=== PATIENT | male | born 1965 | race Caucasian/White ===

== ENCOUNTER 2024-04-01 22:48 | Emergency (ER) | payer OTHER ==
[2024-04-01 23:03] VITALS: TEMP 98.2; BMI 16.5
[2024-04-02 01:09] LABS: BASO % 0.7 % (0-2.0); EOS % 1.1 % (0-4.5); HEMATOCRIT 34.9 % (35.4-49); HEMOGLOBIN 12.2 GM/dL (11.7-16.9); LYMPH % 23.5 % (8-40); MCH 32.3 pg (25.7-33.7); MCHC 34.8 g/dl (32.0-35.9); MEAN CELL VOLUME 92.8 fl (80-96); MEAN PLT VOLUME 8.6 fl (7.5-11.1); MONO % 6.6 % (3.8-10.2); NEUT % 68.1 % (42.8-82.8); PLATELET COUNT 201 10^3/uL (134-434); RBC 3.76 M/mm3 (4.00-5.60); RDW 14.5 % (11.9-15.9); WHITE BLOOD COUNT 6.6 K/mm3 (4.0-10.0)
[2024-04-02 01:27] LABS: ALBUMIN 3.7 g/dl (3.4-5.0); CALCIUM 8.9 mg/dL (8.5-10.1); MAGNESIUM 2.1 mg/dL (1.8-2.4)
[2024-04-02 01:28] LABS: BLOOD UREA NITROGEN 21.3 mg/dL (7-18)
[2024-04-02 01:30] LABS: CREATININE 0.6 mg/dL (0.55-1.3)
[2024-04-02 01:32] LABS: BILIRUBIN,TOTAL 0.5 mg/dL (0.2-1); TOT PROT 7.4 g/dl (6.4-8.2)
[2024-04-02 02:23] LABS: HIV INTERPRETATION NEGATIVE (NEGATIVE)
[2024-04-02] MEDS: LACTATED RINGERS SOLUTION 1000 ML INFUS.BAG IV ONE (03:41)
[2024-04-02 04:16] VITALS: BP 122/75; PULSE 58; RESP 19
== END 2024-04-02 04:54 | disposition home or self-care (01) ==
LOC: JER 22:48
DX: R63.4 Abnormal weight loss (principal); R06.02 Shortness of breath; F41.9 Anxiety disorder, unspecified; R00.2 Palpitations; R42 Dizziness and giddiness; R19.7 Diarrhea, unspecified; R10.32 Left lower quadrant pain
CPT/HCPCS: 36415; 71046-TC-FY; 74177-TC; 80053; 83690; 83735; 84439; 84443; 84484; 85025; 87389; 93005; 93010; 99285-25; Q9967